=== PATIENT | male | born 1985 | race Caucasian/White ===

== ENCOUNTER 2017-10-08 07:10 | Emergency (ER) | payer OTHER ==
[~2017-10-08] VITALS: Ht 167.6 cm; Wt 79.4 kg
[~2017-10-08 07:10] MED LIST: IBUPROFEN600 M1 PO; LO-DOSE ASPIRIN81 MG PO; ULTRAM50 M1 PO; VENTOLIN HFA18 GM INH
[2017-10-08 07:19] VITALS: BP 108/71
--- NOTE | 2017-10-08 08:37 | ED GENERAL ADULT ---
History of Present Illness General Chief Complaint: General Adult Stated Complaint: SHAKEY HANDS/+N Source: patient Exam Limitations: no limitations Vital Signs & Intake/Output Vital Signs & Intake/Output Vital Signs Date Time Temp Pulse Resp B/P B/P Pulse O2 O2 Flow FiO2 Mean Ox Delivery Rate 10/08 0719 98.3 88 18 108/71 98 Room Air Allergies Coded Allergies: artichoke (Intermediate, RASH 09/11/15) Reconcile Medications Albuterol Sulfate (Ventolin Hfa) 18 GM HFA.AER.AD 2 PUF INH Q4-6 PRN PRN shortness of breath Tramadol HCl (Ultram) 50 MG TABLET 1-2 TAB PO Q6PRN PRN severe pain Triage Note: 32 YO MALE TO TRIAGE FOR EVAL OF FEELING SHAKEY, REPORTS "I THINK I WAS HAVING A PANIC ATTACK" REPORTS HX OF SAME. STATES HE WOKE UP THIS AM TOOK HIS ANXIETY MEDICATION ALONG WITH HIS BP MEDICATION THAT HE RECENTLY JUST STARTED BACK ON, REPORTS "I HAVE A CLOUDY HEAD AND NAUSEA" CURRENTLY. Triage Nurses Notes Reviewed? yes HPI: Patient presents for evaluation of this severe and sudden onset of dizziness with spinning overall weakness, headache, nausea and shaking hands. The episode occurred this morning after awakening and taking his Lexapro for anxiety. Patient states he has a history of hypertension but was taken off of pressure medications in January. This was restarted yesterday due to increased blood pressure. In addition to the patient also reports blurred vision and palpitations. After sleeping briefly in the emergency department the patient states that he feels more or less to baseline. Past History Travel History Traveled to [place] past 21 day No Medical History Any Pertinent Medical History? see below for history Neurological: NONE EENT: NONE Cardiovascular: hypertension Respiratory: NONE Gastrointestinal: NONE Hepatic: NONE Renal: NONE Musculoskeletal: NONE Psychiatric: anxiety, opioid dependence Endocrine: NONE Blood Disorders: NONE Cancer(s): NONE MEDICAL EDUCATOR/Reproductive: NONE Surgical History Surgical History: left shoulder surgery Psychosocial History What is your primary language Portuguese Tobacco Use: Never used Family History Hx Contributory? No Review of Systems Review of Systems Constitutional: Reports: no symptoms. EENTM: Reports: no symptoms. Respiratory: Reports: no symptoms. Cardiovascular: Reports: see HPI. GI: Reports: no symptoms. Genitourinary: Reports: no symptoms. Musculoskeletal: Reports: no symptoms. Skin: Reports: no symptoms. Neurological/Psychological: Reports: headache. Hematologic/Endocrine: Reports: no symptoms. Immunologic/Allergic: Reports: no symptoms. All Other Systems: Reviewed and Negative Physical Exam Physical Exam General Appearance: SEE BELOW Comments: Gen.: Well-nourished, well-developed, no acute respiratory distress. Head: Normocephalic, atraumatic. Eyes: Normal inspection bilaterally Ears: Normal inspection bilaterally Nose: Normal inspection Throat/mouth : Moist mucosa Neck: Supple, full range of motion, no goiter Heart: Regular rate and rhythm, no murmurs rubs or gallops Lungs: Clear to auscultation bilaterally with normal air entry Chest: Nontender Back: Normal range of motion Abdomen: Soft, nontender, nondistended, normal bowel sounds Extremities: Normal range of motion grossly, equal radial pulses, no cyanosis clubbing or edema Neurologic: Cranial nerves grossly intact, speech is clear Skin: warm and dry Psychiatric: Calm, cooperative, no apparent delusions or hallucinations Core Measures ACS in differential dx? No CVA/TIA Diagnosis: No Sepsis Present: No Sepsis Focused Exam Completed? No Progress Differential Diagnoses I considered the following diagnoses in my evaluation of the patient: Medication side effect, anxiety, hypoglycemia, dysrhythmia Plan of Care: SEE D/C INSTRUCTIONS Initial ED EKG: none Comments: Patient states he has had a "full" workup of his "heart" without specific abnormality noted. Given that this patient is currently back to baseline and "feels well", I felt that an emergency department evaluation would be unrevealing. The patient agreed. Departure Departure Disposition: HOME OR SELF CARE Condition: Stable Clinical Impression Primary Impression: Anxiety-like symptoms Referrals: Maliha Valdovinos MD (PCP/Family) Additional Instructions: Contacted the doctor who prescribes the amlodipine to see if this should be discontinued based on your symptoms today. Please follow-up with your primary care physician if you have continued episodes. Return to the emergency department immediately if any concerns or sudden worsening. Thank you for choosing the [facility] Emergency Department for your care. It was a pleasure to serve you today. Ace Arteaga M.D. [facility] Departure Forms: Customer Survey General Discharge Information Critical Care Note Critical Care Note Critical Care Time: non-applicable
== END 2017-10-08 08:50 ==
LOC: ERH 07:10
DX: F41.9 Anxiety disorder, unspecified (principal); R42 Dizziness and giddiness; R53.1 Weakness; R51 Headache; R11.0 Nausea; I10 Essential (primary) hypertension